=== PATIENT | female | born 2000 | race Caucasian/White ===

== ENCOUNTER 2024-04-10 23:41 | Emergency (ER) | payer OTHER ==
[~2024-04-10] VITALS: Ht 167.6 cm; Wt 67.6 kg
[2024-04-10 23:45] VITALS: PULSE 86; RESP 18; TEMP 98.7
[2024-04-11] MEDS: ONDANSETRON HCL 4 MG ORAL DISINTEGRATING TAB PO ONE (02:13)
[2024-04-11] MEDS: HYDROCODONE/APAP 5MG-325MG TAB PO ONE (02:14)
[2024-04-11] MEDS: LIDOCAINE HCL 2% LOCAL 20 ML VIAL INJ STA (02:14)
[2024-04-11 02:26] VITALS: BP 121/84; PULSE 73; RESP 18; TEMP 98.3; O2SAT 100
== END 2024-04-11 02:00 | disposition home or self-care (01) ==
LOC: FSED 23:50
DX: L05.01 Pilonidal cyst with abscess (principal)
CPT/HCPCS: 10081; 99283; J2001; Q0162